=== PATIENT | female | born 1970 | race African-American/Black ===

== ENCOUNTER 2016-10-06 08:55 | Emergency (ER) | payer OTHER | END 2016-10-06 09:31 | disposition home or self-care (01) | LOC: BURERS 08:55 | DX: M54.5 Low back pain (principal); F32.9 Major depressive disorder, single episode, unspecified; F17.210 Nicotine dependence, cigarettes, uncomplicated | CPT/HCPCS: 99283 ==

== ENCOUNTER 2016-12-24 09:49 | Outpatient (CLI) | payer OTHER ==
[2016-12-27 22:18] LABS: Chlamydia by PCR Not Detected (NotDetected); GC by PCR Not Detected (NotDetected)
== END 2016-12-24 09:50 | disposition home or self-care (01) ==
LOC: HPCALD 09:49
PROVIDERS: ATTEND Family Medicine
DX: N76.0 Acute vaginitis (principal)
CPT/HCPCS: 87480; 87491; 87510; 87591; 87660

== ENCOUNTER 2017-07-04 10:18 | Emergency (ER) | payer OTHER ==
[2017-07-04] MEDS ORDERED: Ibuprofen 200 MG TAB ONE (10:42)
== END 2017-07-04 10:46 | disposition home or self-care (01) ==
LOC: BURERS 10:18
DX: M75.91 Shoulder lesion, unspecified, right shoulder (principal); Z87.891 Personal history of nicotine dependence
CPT/HCPCS: 99283

== ENCOUNTER 2022-04-29 09:24 | Emergency (ER) | payer OTHER, SELFPAY ==
[2022-04-29] MEDS ORDERED: HYDROcodone/Acetaminophen 5/325 mg Tablet PO ONE (09:25)
== END 2022-04-29 10:16 | disposition home or self-care (01) ==
LOC: BURERS 09:24
DX: M25.512 Pain in left shoulder (principal); R07.89 Other chest pain; F17.210 Nicotine dependence, cigarettes, uncomplicated
CPT/HCPCS: 99283